=== PATIENT | male | born 1985 | race Caucasian/White ===

== ENCOUNTER 2019-04-04 11:05 | Emergency (ER) | payer OTHER ==
[~2019-04-04] VITALS: Ht 193 cm; Wt 158.8 kg
[2019-04-04 11:05] VITALS: BP_SYST 146
--- NOTE | 2019-04-04 11:05 | NUR ---
BROUGHT BACK TO BED #4 AND TRIAGED. REPORT GIVEN TO OUSMANE
--- NOTE | 2019-04-04 11:16 | NUR ---
ER Dr. PACHCEO at bedside examining patient.
[2019-04-04] MEDS ORDERED: KETOROLAC TROMETHAMINE 60 MG/2 ML VIAL IM ONE (11:30)
--- NOTE | 2019-04-04 11:31 | NUR ---
PATIENT BACK FRI\OM RADIOLOGY IN STABLE CONDITION.
--- NOTE | 2019-04-04 11:33 | NUR ---
PATIENT CAME IN COMPLAINING OF PAIN 06/27 IN GROIN. PATIENT STATES IT HAS BEEN LIKE THIS FOR 2 TO 3 WEEKS. PATIENT STATES THE PAIN IS SHARP AND THROBBING. PATIENT STATES HE TOOK PERCOCET. PATIENT SAID HE COULD HAVE INJURED IT AT WORK BUT NOT SURE. PATIENT NOT COMPLAINING OF SOB. PATIENT NOT COMPLAINING OF [place] OR VOMITING. PATIENT ALERT AND ORIENTED X4.
[2019-04-04 11:49] LABS: BASOPHILS # (AUTO) 0.1 K/uL (0.0-0.2); BASOPHILS % (AUTO) 0.8 % (0.0-2.0); EOSINOPHILS # (AUTO) 0.2 K/uL (0.0-0.4); EOSINOPHILS % (AUTO) 2.7 % (0.0-4.0); HEMATOCRIT 46.6 % (36-54); LYMPHOCYTES # (AUTO) 2.4 K/uL (1.0-5.5); LYMPHOCYTES % (AUTO) 30.5 % (20.5-51.5); MEAN CORPUSCULAR HEMOGLOBIN 29 pg (27-31); MEAN CORPUSCULAR HGB CONC 34 % (32-36); MEAN CORPUSCULAR VOLUME 84 fL (79.0-98.0); MONOCYTES # (AUTO) 0.6 K/uL (0.0-1.0); MONOCYTES % (AUTO) 7.8 % (1.7-9.3); NEUTROPHILS # (AUTO) 4.6 K/uL (1.8-7.7); NEUTROPHILS % (AUTO) 58.2 % (40.0-70.0); PLATELET COUNT (AUTO) 224 K/uL (130-430); RED BLOOD CELL COUNT(AUTO) 5.58 MIL/uL (4.2-6.2); WHITE BLOOD COUNT (AUTO) 7.8 K/uL (4.8-10.8)
[2019-04-04 12:11] LABS: POTASSIUM 4.2 mmol/L (3.5-5.1)
[2019-04-04 12:12] LABS: ALBUMIN 3.9 g/dL (3.4-4.8); CALCIUM 9.1 mg/dL (8.4-11.0); CREATININE 1.2 mg/dL (0.55-1.30); TOTAL BILIRUBIN 0.6 mg/dL (0.0-1.0)
[2019-04-04 12:13] LABS: BILIRUBIN,URINE NEGATIVE (NEGATIVE); BLOOD, URINE NEGATIVE (NEGATIVE); CLARITY/URINE CLEAR (CLEAR); COLOR,URINE YELLOW (YELLOW); GLUCOSE,URINE NEGATIVE (NEGATIVE); KETONES,URINE NEGATIVE (NEGATIVE); LEUKOCYTE ESTERASE ,URINE TRACE (NEGATIVE); NITRITE, URINE NEGATIVE (NEGATIVE); PH,URINE 5.5 (5.0-8.0); PROTEIN URINE NEGATIVE (NEGATIVE); UROBILINOGEN,URINE 0.2 (0.2-1.0)
[2019-04-04 12:16] LABS: BACTERIA,URINE RARE /HPF (None Seen); MUCUS,URINE None Seen /LPF (None Seen); RBC,URINE 0-3 /HPF (0-3); WBC,URINE 0-3 /HPF (0-3)
--- NOTE | 2019-04-04 13:01 | NUR ---
DR HOLGUIN AT BEDSIDE TALKING TO PATIENT.
[2019-04-04 13:11] VITALS: BP_SYST 146
--- NOTE | 2019-04-04 13:11 | NUR ---
Patient given written and verbal discharge instructions and verbalizes understanding. ER MD discussed with patient the results and treatment provided. Patient in stable condition. ID arm band removed. Rx of naprosyn and flexeril given. Patient educated on pain management and to follow up with PMD. Pain Scale 3/10 tolerable. Opportunity for questions provided and answered. Medication side effect fact sheet provided.
[2019-04-05 20:17] LABS: CHLAMYDIA TRACHOMATIS NAA Negative (Negative); NEISSERIA GONORRHOEAE NAA Negative (Negative)
== END 2019-04-04 13:11 | disposition home or self-care (01) ==
LOC: SED 11:05
DX: N50.811 Right testicular pain (principal); M54.9 Dorsalgia, unspecified
CPT/HCPCS: 36415; 74176; 80053; 81000; 85025; 87491; 87591; 96372; 99284; J1885

== ENCOUNTER 2019-04-10 07:19 | Emergency (ER) | payer OTHER ==
[~2019-04-10] VITALS: Ht 193 cm; Wt 154.2 kg
[2019-04-10 07:25] VITALS: BP_SYST 155
[2019-04-10] MEDS ORDERED: KETOROLAC TROMETHAMINE 60 MG/2 ML VIAL IM ONE (08:00)
[2019-04-10 08:50] VITALS: BP_SYST 155
== END 2019-04-10 08:50 | disposition home or self-care (01) ==
LOC: SED 07:19
DX: M54.31 Sciatica, right side (principal)
CPT/HCPCS: 96372; 99283; J1885